=== PATIENT | male | born 1985 | race Caucasian/White ===

== ENCOUNTER 2019-05-31 18:46 | Emergency (ER) | payer SELFPAY ==
--- NOTE | 2019-05-31 20:39 | ER ---
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 Patient denies a fall or trauma. Care prior to arrival: None. Mechanism of Injury: No Mechanism of Injury. Trauma event details: Injury occurred in the [facility]. 19:14 Acuity: JOSR 4 hb 19:14 Method Of Arrival: Ambulatory 19:56 Transition of care: patient was not received from another setting of care. Onset of tr5 symptoms was May 31, 2019. Risk Assessment: Do you want to hurt yourself or someone else? Patient reports no desire to harm self or others. Initial Sepsis Screen: Does the patient meet any 2 criteria? No. Patient's initial sepsis screen is negative. Does the patient have a suspected source of infection? No. Patient's initial sepsis screen is negative. Trauma Activation: Physician: ED Physician; Name: ; Notified At: ; Arrived At: Physician: General Surgeon; Name: ; Notified At: ; Arrived At: Physician: Radiology; Name: ; Notified At: ; Arrived At: Physician: Respiratory; Name: ; Notified At: ; Arrived At: Physician: Lab; Name: ; Notified At: ; Arrived At: 19:14 None hb Historical: - Allergies: 19:17 PENICILLINS; hb - Home Meds: 19:17 None [Active]; hb - PMHx: 19:17 None; hb - PSHx: 19:17 None; hb - Immunization history:: Adult Immunizations up to date. - Social history:: Smoking status: Patient/guardian denies using tobacco, Patient/guardian denies using alcohol, street drugs. - Immunization history: Last tetanus immunization: - up to date. - Ebola Screening: : Patient negative for fever greater than or equal to 101.5 degrees Fahrenheit, and additional compatible Ebola Virus Disease symptoms Patient denies exposure to infectious person Patient denies travel to an Ebola-affected area in the 21 days before illness onset. Screenin:56 Abuse screen: Denies threats or abuse. Tuberculosis screening: No symptoms or risk tr5 factors identified. 20:20 Nutritional screening: No deficits noted. Fall Risk None identified. tr5 Primary Survey: 19:56 NO uncontrolled hemorrhage observed. Breathing/Chest: Respiratory pattern: regular, tr5 Respiratory effort: spontaneous, Breath sounds: clear, Chest inspection: symmetrical rise and fall of the chest. Circulation: Cardiac rhythm: sinus rhythm Heart tones present. Pulses: palpable right radial artery, right posterior tibial artery, left radial artery and left posterior tibial artery. Skin color: pink, Skin temperature: dry. Disability Alert. Exposure/Environment: All clothing and personal items were removed. Forensic evidence collection is not deemed to be indicated at this time. Items placed in patient belonging bag. There is no evidence of uncontrolled external bleeding. No obvious injuries are noted at this time. Reassessment Breathing/Chest Respiratory pattern Regular Respiratory effort Spontaneous Breath sounds Clear Chest inspection Symmetrical Circulation Heart rhythm Sinus rhythm Heart tones Present Pulses Palpable Color Fountain Temperature Warm Disability Alert. Secondary Survey: 19:56 HEENT: No deficits noted. Head No injury/deformity Face No injury/deformity Eyes: No tr5 injury or deformity noted. Ears: clear Nose: clear Throat: No injury or deformity noted. Gastrointestinal: No deficits noted. : No deficits noted. Musculoskeletal: No deficits noted. Assessment: 19:56 General: Appears uncomfortable, Behavior is calm, cooperative, appropriate for age. tr5 Pain: Complains of pain in right foot and right ankle Pain does not radiate. Quality of pain is described as aching, Pain began 30 min ago. Is episodic. Neuro: Level of Consciousness is awake, alert, Oriented to person, place, time, Embossing Machine Tender are equal bilaterally Moves all extremities. EENT: No signs and/or symptoms were reported regarding the EENT system. Cardiovascular: Heart tones present Capillary refill < 3 seconds Pulses are all present. Edema is absent. Respiratory: Airway is patent Respiratory effort is even, unlabored, Respiratory pattern is regular, symmetrical. GI: Abdomen is round. : No signs and/or symptoms were reported regarding the genitourinary system. Derm: No signs and/or symptoms reported regarding the dermatologic system. Musculoskeletal: No signs and/or symptoms reported regarding the musculoskeletal system. Vital Signs: 19:18 BP 144 / 83; Pulse 93; Resp 18; Temp 98.9; Pulse Ox 95% ; Weight 195.04 kg; Height 5 hb ft. 11 in. (180.34 cm); Pain 4/10; 20:31 BP 145 / 87; Pulse 85; Resp 17; Pulse Ox 97% on R/A; tr5 19:18 Body Mass Index 59.97 (195.04 kg, 180.34 cm) hb Nahed Coma Score: 19:56 Eye Response: spontaneous(4). Verbal Response: oriented(5). Motor Response: obeys tr5 commands(6). Total: 15. Trauma Score (Adult): 19:56 Eye Response: spontaneous(1); Verbal Response: oriented(1); Motor Response: obeys tr5 commands(2); Systolic BP: > 89 mm Hg(4); Respiratory Rate: 10 to 29 per min(4); [place] Score: 15; Trauma Score: 12 ED Course: 18:51 Patient arrived in ED. mr 19:16 Triage completed. hb 19:18 [facility] kb 19:18 Jonathan Starks MD is Attending Physician. kb 19:18 Arm band placed on right wrist. Patient placed in an exam room, on a stretcher, on hb pulse oximetry, Patient notified of wait time. 19:28 Nicolas Barcenas, RN is Primary Nurse. tr5 19:56 Bed in low position. Call light in reach. Side rails up X 1. tr5 19:56 Patient maintains SpO2 saturation greater than 95% on room air. tr5 20:20 No provider procedures requiring assistance completed. tr5 20:48 Patient did not have IV access during this emergency room visit. tr5 20:49 Thermoregulation: warm blanket given to patient. tr5 20:55 Ankle Right 3 View XRAY In Process Unspecified. EDMS 20:55 Knee Right 3 View XRAY In Process Unspecified. EDMS Administered Medications: No medications were administered Outcome: 19:56 Patient's length of stay was not longer than 2 hours. tr5 20:38 Discharge ordered by . kb 20:47 Discharged to home ambulatory. tr5 20:47 Condition: stable 20:48 Discharge instructions given to patient, Instructed on discharge instructions, follow tr5 up and referral plans. medication usage, Demonstrated understanding of instructions, follow-up care, medications. 20:50 Patient left the ED. tr5 Signatures: Dispatcher [employer] EDAmber Vergara, Lizzy Tabares Heather, RN Nicolas King RN RN tr5
--- NOTE | 2019-05-31 20:40 | EDPHYS ---
Physician Documentation [facility] Name: Artie Schmidt Age: 33 yrs Sex: Male : 1985 Arrival Date: 05/31/2019 Time: 18:51 Bed 28 Private MD: ED Physician Jonathan Starks HPI: 05/31 20:19 This 33 yrs old Male presents to ER via Ambulatory with complaints of ankle kb and knee pain. 20:19 The patient presents with pain, that is acute, swelling, tenderness. The complaints kb affect the right ankle and right knee. Context: The problem was sustained inside, resulted from a mis-step, steps, the patient can fully bear weight, the patient is able to ambulate. Onset: The symptoms/episode began/occurred just prior to arrival. Modifying factors: The symptoms are alleviated by nothing. the symptoms are aggravated by weight bearing. Associated signs and symptoms: The patient has no apparent associated signs or symptoms. Treatment prior to arrival includes: no previous treatment. Severity of symptoms: At their worst the symptoms were moderate, in the emergency department the symptoms are unchanged. The patient has not experienced similar symptoms in the past. The patient has not recently seen a physician. Pt reports he was coming down some stairs and missed the last step twisting his knee and ankle. c/o knee and ankle pain on right side. . Historical: - Allergies: 19:17 PENICILLINS; hb - Home Meds: 19:17 None [Active]; hb - PMHx: 19:17 None; hb - PSHx: 19:17 None; hb - Immunization history:: Adult Immunizations up to date. - Social history:: Smoking status: Patient/guardian denies using tobacco, Patient/guardian denies using alcohol, street drugs. - Immunization history: Last tetanus immunization: - up to date. - Ebola Screening: : Patient negative for fever greater than or equal to 101.5 degrees Fahrenheit, and additional compatible Ebola Virus Disease symptoms Patient denies exposure to infectious person Patient denies travel to an Ebola-affected area in the 21 days before illness onset. ROS: 20:21 Constitutional: Negative for fever, chills, and weight loss, Cardiovascular: Negative kb for chest pain, palpitations, and edema, Respiratory: Negative for shortness of breath, cough, wheezing, and pleuritic chest pain, Abdomen/GI: Negative for abdominal pain, nausea, vomiting, diarrhea, and constipation, : Negative for injury, bleeding, discharge, and swelling, Skin: Negative for injury, rash, and discoloration, Neuro: Negative for headache, weakness, numbness, tingling, and seizure. 20:21 MS/extremity: Positive for pain, swelling, tenderness, of the right knee and right ankle. Exam: 20:21 Constitutional: This is a well developed, well nourished patient who is awake, alert, kb and in no acute distress. Head/Face: Normocephalic, atraumatic. Neck: Trachea midline, no thyromegaly or masses palpated, and no cervical lymphadenopathy. Supple, full range of motion without nuchal rigidity, or vertebral point tenderness. No Meningismus. Chest/axilla: Normal chest wall appearance and motion. Nontender with no deformity. No lesions are appreciated. Cardiovascular: Regular rate and rhythm with a normal S1 and S2. No gallops, murmurs, or rubs. Normal PMI, no JVD. No pulse deficits. Respiratory: Lungs have equal breath sounds bilaterally, clear to auscultation and percussion. No rales, rhonchi or wheezes noted. No increased work of breathing, no retractions or nasal flaring. Abdomen/GI: Soft, non-tender, with normal bowel sounds. No distension or tympany. No guarding or rebound. No evidence of tenderness throughout. Skin: Warm, dry with normal turgor. Normal color with no rashes, no lesions, and no evidence of cellulitis. Neuro: Awake and alert, GCS 15, oriented to person, place, time, and situation. Cranial nerves II-XII grossly intact. Motor strength 5/5 in all extremities. Sensory grossly intact. Cerebellar exam normal. Normal gait. 20:21 Musculoskeletal/extremity: Extremities: grossly normal except: noted in the right knee and right ankle: pain, swelling, tenderness, ROM: intact in all extremities, Circulation is intact in all extremities. Sensation intact. Weight bearing: able to fully bear weight. Vital Signs: 19:18 BP 144 / 83; Pulse 93; Resp 18; Temp 98.9; Pulse Ox 95% ; Weight 195.04 kg; Height 5 hb ft. 11 in. (180.34 cm); Pain 4/10; 20:31 BP 145 / 87; Pulse 85; Resp 17; Pulse Ox 97% on R/A; tr5 19:18 Body Mass Index 59.97 (195.04 kg, 180.34 cm) hb [place] Coma Score: 19:56 Eye Response: spontaneous(4). Verbal Response: oriented(5). Motor Response: obeys tr5 commands(6). Total: 15. Trauma Score (Adult): 19:56 Eye Response: spontaneous(1); Verbal Response: oriented(1); Motor Response: obeys tr5 commands(2); Systolic BP: > 89 mm Hg(4); Respiratory Rate: 10 to 29 per min(4); Nahed Score: 15; Trauma Score: 12 MDM: 19:30 Patient medically screened. kb 20:22 Data reviewed: vital signs, nurses notes. Data interpreted: Pulse oximetry: on room air kb is 95 %. Interpretation: normal. 20:37 Counseling: I had a detailed discussion with the patient and/or guardian regarding: the kb historical points, exam findings, and any diagnostic results supporting the discharge/admit diagnosis, radiology results, the need for outpatient follow up, a family practitioner, to return to the emergency department if symptoms worsen or persist or if there are any questions or concerns that arise at home. 05/31 19:45 Order name: Ankle Right 3 View XRAY kb 05/31 19:45 Order name: Knee Right 3 View XRAY kb Administered Medications: No medications were administered Disposition: 06/01 05:11 Co-signature as Attending Physician, Jonathan Starks MD Available for consultation at ps1 all times . Disposition: 05/31/19 20:38 Discharged to Home. Impression: Pain in right knee, Pain in right ankle and joints of right foot. - Condition is Stable. - Discharge Instructions: Musculoskeletal Pain, Ankle Sprain, [id number], Knee Pain, [id number]. - Prescriptions for Diclofenac Sodium 75 mg Oral Tablet, Delayed Release (E.C.) - take 1 tablet by ORAL route 2 times per day As needed; 30 tablet. - Medication Reconciliation Form, Thank You Letter, Antibiotic Education, Prescription Opioid Use form. - Follow up: Emergency Department; When: As needed; Reason: Worsening of condition. Follow up: Private Physician; When: 2 - 3 days; Reason: Recheck today's complaints, Continuance of care, Re-evaluation by your physician. Signatures: Dispatcher [employer] EDAmber Vergara, FLOAT PHLEBOTOMIST-C FLOAT PHLEBOTOMIST-Ckb Shania Hines, RN RN Jonathan Starks MD MD ps1 Rodriguez, Tommie, RN RN tr5 Corrections: (The following items were deleted from the chart) 05/31 20:21 20:19 This 33 yrs old Male presents to ER via Ambulatory with complaints of kb Fall Injury. kb 20:50 20:38 05/31/2019 20:38 Discharged to Home. Impression: Pain in right knee; Pain in tr5 right ankle and joints of right foot. Condition is Stable. Forms are Medication Reconciliation Form, Thank You Letter, Antibiotic Education, Prescription Opioid Use. Follow up: Emergency Department; When: As needed; Reason: Worsening of condition. Follow up: Private Physician; When: 2 - 3 days; Reason: Recheck today's complaints, Continuance of care, Re-evaluation by your physician. kb
[2019-05-31 20:54] VITALS: TEMP 98.9
[2019-05-31 20:55] VITALS: BP 145/87; O2SAT 97
--- NOTE | 2019-05-31 22:01 | RAD REPORT ---
EXAM DESCRIPTION: RAD - Ankle Right 3 View - 05/31/2019 8:54 pm CLINICAL HISTORY: PAIN COMPARISON: No comparisons FINDINGS: No acute fracture or dislocation seen. Small calcaneal spurs are evident.
--- NOTE | 2019-05-31 22:01 | RAD REPORT ---
EXAM DESCRIPTION: RAD - Knee Right 3 View - 05/31/2019 8:54 pm CLINICAL HISTORY: PAIN COMPARISON: No comparisons FINDINGS: No fracture, dislocation or joint effusion.
== END 2019-05-31 20:50 | disposition home or self-care (01) ==
LOC: ER 18:46
DX: M25.571 Pain in right ankle and joints of right foot (principal); Z88.0 Allergy status to penicillin
CPT/HCPCS: 99284